=== PATIENT | male | born 1985 | race Caucasian/White ===

== ENCOUNTER 2017-03-05 11:43 | Day surgery (SDC) | payer OTHER ==
[~2017-03-05] VITALS: Ht 172.7 cm; Wt 80.4 kg
[2017-03-05 12:43] VITALS: Ht 172.7 cm; Wt 80.4 kg
[2017-03-05 13:50] VITALS: BP 119/77; PULSE 79; RESP 16
[2017-03-05 14:15] VITALS: BP 107/69; PULSE 61; RESP 16
[2017-03-05] MEDS ORDERED: MIDAZOLAM 1 MG/ML 2 ML INJ ONE ×3 (14:19)
[2017-03-05] MEDS ORDERED: FENTAnyl 50 MCG/ML VIAL ONE (14:19)
[2017-03-05 14:39] VITALS: BP 120/83; PULSE 70; RESP 12
--- NOTE | 2017-03-11 04:33 | GILP ---
DATE OF PROCEDURE: 03/05/2017 PREOPERATIVE DIAGNOSIS: Rectal bleeding. POSTOPERATIVE DIAGNOSES: 1. Colonoscopy all the way to the cecum. 2. Internal hemorrhoids. 3. No colitis or neoplasm was identified. PROCEDURE PERFORMED: Colonoscopy. SURGEON: George Tinsley MD. INDICATION FOR PROCEDURE: Mr. Rody Negron is a 32-year- old male patient who has rectal bleeding. The patient was scheduled for colonoscopy for further evaluation. The procedure and possible complications were well explained to the patient. He understood and consented to the procedure. DESCRIPTION OF PROCEDURE: Under the influence of fentanyl and Versed the colonoscope was carefully introduced in the rectum and under direct vision it was advanced all the way to the cecum. Findings, the patient had internal hemorrhoids. No colitis or neoplasm was identified. He tolerated the procedure very well and there was no complications from the procedure. At the end of procedure he was awake with stable vital signs and he was discharged home in the care of his family. IMPRESSION: 1. Colonoscopy all the way to the cecum. 2. Internal hemorrhoids. 3. No colitis or neoplasm was identified. PLAN: 1. Anusol HC 2.5 percent cream b.i.d. p.r.n. for bleeding. 2. Sitz bath p.r.n. 3. If the patient continued to bleed consider hemorrhoidectomy. Dictated By: MD RANJEET Barry/[email or web address] /Document#: [id number] CC: George Tinsley MD;*End*
== END 2017-03-05 19:37 | disposition home or self-care (01) ==
LOC: GIL 11:43
PROVIDERS: ATTEND Internal Medicine Gastroenterology
DX: Z12.11 Encounter for screening for malignant neoplasm of colon (principal); K64.8 Other hemorrhoids
CPT/HCPCS: 45378; J2250; J3010; Z7610

== ENCOUNTER 2018-08-28 00:59 | Emergency (ER) | payer OTHER ==
[~2018-08-28] VITALS: Wt 79.6 kg
[2018-08-28 01:00] VITALS: Wt 79.6 kg
--- NOTE | 2018-08-28 01:21 | ERD ---
ER Documentation Chief Complaint Chief Complaint Chest pain HPI The patient is a 33-year-old male, presenting to the ER because of intermittent left-sided chest pain for more than 2 months, worse with movement, better with rest, denies chest pain with vomiting/radiation/exertion/diaphoresis. He denies fever, chills, neck pain, abdominal pain, vomiting ,diarrhea, dysuria. He complains of chronic intermittent bilateral feet pain. He works long hours on his feet and required heavy lifting at work. He does not smoke, drinks socially, denies any illicit drug Past medical history: Past medical/surgical history: None ROS All systems reviewed and are negative except as per history of present illness. Medications Home Meds Active Scripts Ibuprofen* (Motrin*) 600 Mg Tab, 600 MG PO Q6H PRN for PAIN AND OR ELEVATED TEMP, #20 TAB Prov:MARTIN RAMSEY MD 08/28/18 Reported Medications [None] No Conflict Check 03/05/17 Allergies Allergies: Coded Allergies: No Known Allergy (Unverified , 03/05/17) PMhx/Soc History of Surgery: Yes (TONSILS ) Anesthesia Reaction: No Hx Neurological Disorder: No Hx Respiratory Disorders: No Hx Cardiac Disorders: No Hx Psychiatric Problems: No Hx Miscellaneous Medical Probl: No Hx Alcohol Use: Yes (OCC) Hx Substance Use: No Hx Tobacco Use: No Physical Exam Vitals Vital Signs Date Temp Pulse Resp B/P (MAP) Pulse Ox O2 O2 Flow FiO2 Time Delivery Rate 08/28/18 98.2 71 14 119/74 100 Room Air 02:34 (89) 08/28/18 98.2 68 16 111/66 98 Room Air 01:50 (81) 08/28/18 98.2 78 16 122/63 98 01:00 (82) Physical Exam Const: No acute distress. Head: Atraumatic. Eyes: Normal Conjunctiva. ENT: Normal External Ears, Nose and Mouth. Neck: Full range of motion. No meningismus. Resp: Clear to auscultation bilaterally. Cardio: Regular rate and rhythm. Abd: Soft, non distended, normal bowel sounds, non tender. Skin: No petechiae or rashes. Back: No midline or flank tenderness. Ext: No cyanosis, or edema. Neur: Awake and alert. No focal deficit Psych: Normal Mood and Affect. Procedures/MDM EKG: Read by emergency physician Rate/Rhythm: Normal Sinus Rhythm 69 beats/min QRS, ST, T-waves: No ST elevation, no T inversion Impression: Normal EKG MEDICAL MAKING DECISION: The patient is a 33-year-old male, presenting with intermittent chest pain, most likely musculoskeletal origin, is above outpatient follow-up The differential diagnoses considered include but are not limited to acute coronary syndrome, acute myocardial infarction, pericarditis, pulmonary embolism, aortic dissection, pneumonia, pleural effusion, pneumothorax, GERD, chest wall pain. Departure Diagnosis: Primary Impression: Chest pain Condition: Good Additional Instructions: I discussed the findings with the patient. I advised the patient to follow-up with the local hand plug shaper Dr. Badillo in about 2-3 days, sooner if needed and return if any concern. Disclaimer: Inadvertent spelling and grammatical errors are likely due to EHR/dictation software use and do not reflect on the overall quality of patient care. Also, please note that the electronic time recorded on this note does not necessarily reflect the actual time of the patient encounter. MARTIN RAMSEY MD Aug 28, 2018 01:21
[2018-08-28] MEDS ORDERED: IBUP-1542 PO (01:44)
[2018-08-28 02:34] VITALS: BP 119/74; PULSE 71; RESP 14
== END 2018-08-28 02:50 | disposition home or self-care (01) ==
LOC: E/R 00:59
DX: R07.9 Chest pain, unspecified (principal)
CPT/HCPCS: 93005